=== PATIENT | female | born 1940 | race Caucasian/White ===

== ENCOUNTER → 2017-12-31 | Outpatient (CLI) | payer MEDICARE ==
[~2017-12-31] MED LIST: BENAML20/5; FISH1000 PO; HYDACE5 PO; UBID10 PO
== END | disposition home or self-care (01) ==
LOC: LAB 16:24 → LAB SHORT 16:24
DX: R35.0 Frequency of micturition (principal)
CPT/HCPCS: 87086

== ENCOUNTER → 2021-05-18 | Outpatient (CLI) | payer MEDICARE ==
[2021-05-18 13:58] LABS: Stool Occult Bld Immuno 1 Negative (NEGATIVE)
== END | disposition home or self-care (01) ==
LOC: LAB 09:37 → LAB SHORT 09:37
PROVIDERS: Family Medicine
DX: R19.7 Diarrhea, unspecified (principal)
CPT/HCPCS: G0328

== ENCOUNTER → 2021-06-09 | Outpatient (CLI) | payer MEDICARE ==
[2021-06-09 17:37] LABS: Adenovirus F 40/41 Not Detected (NOT DETECT); Astrovirus Not Detected (NOT DETECT); Campylobacter Sp Not Detected (NOT DETECT); Cryptosporidium Not Detected (NOT DETECT); Cyclospora Cayetanensis Not Detected (NOT DETECT); E. Coli O157 Not Detected (NOT DETECT); Entamoeba Histolytica Not Detected (NOT DETECT); Enteroaggregative E. coli-EAEC Not Detected (NOT DETECT); Enteropathogenic E. coli-EPEC Detected (NOT DETECT); Enterotoxigenic E. coli-ETEC Not Detected (NOT DETECT); Giardia Lamblia Not Detected (NOT DETECT); Norovirus GI/GII Not Detected (NOT DETECT); Plesiomonas Shigelloides Not Detected (NOT DETECT); Rotavirus A Not Detected (NOT DETECT); Salmonella Sp Not Detected (NOT DETECT); Sapovirus Not Detected (NOT DETECT); Shiga Toxin-prod E. coli-STEC Not Detected (NOT DETECT); Shigella/Enteroin E. coli-EIEC Not Detected (NOT DETECT); Vibrio Cholerae Not Detected (NOT DETECT); Vibrio Sp Not Detected (NOT DETECT); Yersinia Enterocolitica Not Detected (NOT DETECT)
== END | disposition home or self-care (01) ==
LOC: LAB SHORT 12:15 → LAB 12:15
PROVIDERS: Family Medicine
DX: K52.9 Noninfective gastroenteritis and colitis, unspecified (principal)
CPT/HCPCS: 0097U

== ENCOUNTER 2023-06-15 12:50 | Emergency (ER) | payer MEDICARE ==
[~2023-06-15] VITALS: Ht 157.5 cm; Wt 56.7 kg
[2023-06-15] MEDS ORDERED: Lasix20 MG PO (15:07)
[2023-06-15 15:25] VITALS: BP 160/80
== END 2023-06-15 15:25 | disposition home or self-care (01) ==
LOC: ER 12:50
DX: I11.0 Hypertensive heart disease with heart failure (principal); I50.9 Heart failure, unspecified; Z88.2 Allergy status to sulfonamides; Z79.899 Other long term (current) drug therapy
CPT/HCPCS: 71046; 80053; 83880; 84484; 85025; 93005; 93010; 96374; 99284-25; J1940

== ENCOUNTER 2023-07-24 06:46 | Inpatient (IN) | payer MEDICARE ==
[~2023-07-24] VITALS: Ht 157.5 cm; Wt 51.0 kg
[2023-07-24] VITALS (12 sets, daily range): BP systolic 86–119; BP diastolic 56–88
[~2023-07-24 06:46] MED LIST changes: +Lasix20 MG PO
[2023-07-24] MEDS ORDERED: Potassium Chlo20 ME1 PO (07:00)
[2023-07-24] MEDS ORDERED: Ventolin/Prove6.7 GM INH (07:00)
[2023-07-24] MEDS ORDERED: FUROSEMIDE20 MG PO (07:00)
[2023-07-24] MEDS ORDERED: BENAZEPRIL HCL10 MG PO (07:01)
[2023-07-24] MEDS ORDERED: AMLODIPINE BESYL5 MG PO (07:01)
[2023-07-24 07:23] LABS: BASOPHILS ABSOLUTE AUTO 0.03 K/mm3 (0.00-0.23); BASOPHILS PERCENT AUTO 0 % (0-2); EOSINOPHILS ABSOLUTE AUTO 0.03 K/mm3 (0.00-0.68); EOSINOPHILS PERCENT AUTO 0 % (0-6); Hematocrit 43.2 % (33.0-51.0); Hemoglobin 13.7 g/dL (11.5-16.0); IMMATURE GRAN ABSOLUTE AUTO 0.03 K/mm3 (0.00-0.10); IMMATURE GRAN PERCENT AUTO 0 % (0-1); LYMPHOCYTES ABSOLUTE AUTO 1.53 K/mm3 (0.84-5.20); LYMPHOCYTES PERCENT AUTO 21 % (21-46); MONOCYTES ABSOLUTE AUTO 0.99 K/mm3 (0.16-1.47); MONOCYTES PERCENT AUTO 13 % (4-13); Mean Corpuscular HGB 28.5 pg (26.0-34.0); Mean Corpuscular HGB Conc 31.7 g/dL (31.5-36.5); Mean Corpuscular Volume 90 fL (80-100); NEUTROPHILS ABSOLUTE AUTO 4.87 K/mm3 (1.96-9.15); NEUTROPHILS PERCENT AUTO 65 % (41-73); NRBC ABSOLUTE 0.02 K/mm3 (0.00-0.02); NRBC Auto 0.3 /100 WBC (0.0-0.2); Platelet Count 172 K/mm3 (150-400); RDW Coefficient Variation 15.1 % (11.7-14.2); RDW Standard Deviation 48.7 fL (35.1-46.3); White Blood Cell Count 7.48 K/mm3 (4.00-11.30)
[2023-07-24 07:59] LABS: Bilirubin, Total 2.8 mg/dL (0.1-1.0); Bun/Creatinine Ratio 30.8 (12.0-20.0); Calcium, Blood 8.3 mg/dL (8.5-10.1); Creatinine, Blood 0.81 mg/dL (0.40-1.00); Magnesium, Blood 2.4 mg/dL (1.6-2.4); Potassium, Blood 4.2 mmol/L (3.5-5.5)
[2023-07-24 10:18] LABS: Anti-Xa UFH, PHA Monitoring <0.10 IU/mL; International Normalized Ratio 1.33; Prothrombin Time Results 13.7 Sec (9.7-11.5)
--- NOTE | 2023-07-24 11:22 | NUR ---
Report from ED RN at this time. Pt coming to PCU 13 shortly.
[2023-07-24] MEDS ORDERED: TRELEGY ELLIPT1 EACH INH (11:46)
--- NOTE | 2023-07-24 14:20 | NUR ---
Assisted up to bedside commode to void. She was short of breath during the activity, but was able to tolerate it. Needed to sit on side of bed to recover afterwards. Said that she had a little bit of dizzyness but that she "was all right'.
--- NOTE | 2023-07-24 19:00 | NUR ---
Pt returned from the laboratory animal caretaker. Bedside report from Marcus Royal and Sean Menchaca. Pt is awake, alert and oriented, asking for a popscicle. Blood pressure stable; noted atrial fibrillation 136 bpm, no dyspnea, no discomfort, no pain. Flostasis devices noted in place and covered with tegederm dressing in place.
[2023-07-25] VITALS (7 sets, daily range): BP systolic 95–134; BP diastolic 58–95
--- NOTE | 2023-07-25 00:52 | NUR ---
HR UPDATE THIS RN NOTIFIED BY TELEMETRY THAT PT'S HR SUSTAINING 130'S, TOUCHING 150'S FREQUENTLY. CALL PLACED TO PHYSICIAN. ADVISED THAT PT'S BP IS 95/70, UNABLE TO ADMINISTER PRN LOPRESSOR PUSH DUE TO BP PARAMETERS. ORDERS RECEIVED FOR DIGOXIN, WILL ADMINISTER PER EMAR.
[2023-07-25 04:30] LABS: BASOPHILS ABSOLUTE AUTO 0.03 K/mm3 (0.00-0.23); BASOPHILS PERCENT AUTO 0 % (0-2); EOSINOPHILS ABSOLUTE AUTO 0.02 K/mm3 (0.00-0.68); EOSINOPHILS PERCENT AUTO 0 % (0-6); Hemoglobin 12.2 g/dL (11.5-16.0); IMMATURE GRAN ABSOLUTE AUTO 0.03 K/mm3 (0.00-0.10); IMMATURE GRAN PERCENT AUTO 0 % (0-1); LYMPHOCYTES ABSOLUTE AUTO 1.56 K/mm3 (0.84-5.20); LYMPHOCYTES PERCENT AUTO 20 % (21-46); MONOCYTES ABSOLUTE AUTO 1.02 K/mm3 (0.16-1.47); MONOCYTES PERCENT AUTO 13 % (4-13); Mean Corpuscular HGB Conc 31.3 g/dL (31.5-36.5); Mean Corpuscular Volume 90 fL (80-100); Mean Platelet Volume 10.7 fL (9.1-12.4); NEUTROPHILS ABSOLUTE AUTO 5.16 K/mm3 (1.96-9.15); NEUTROPHILS PERCENT AUTO 66 % (41-73); Platelet Count 177 K/mm3 (150-400); RDW Coefficient Variation 15.2 % (11.7-14.2); RDW Standard Deviation 49.7 fL (35.1-46.3); Red Blood Cell Count 4.35 M/mm3 (3.80-5.20); White Blood Cell Count 7.82 K/mm3 (4.00-11.30)
[2023-07-25 04:49] LABS: Bun/Creatinine Ratio 32.3 (12.0-20.0); Calcium, Blood 7.6 mg/dL (8.5-10.1); Creatinine, Blood 0.8 mg/dL (0.40-1.00); Potassium, Blood 4.2 mmol/L (3.5-5.5)
--- NOTE | 2023-07-25 04:57 | NUR ---
END OF SHIFT NOTE: PT REMAINS A&OX4, ABLE TO CALL APPROPRIATELY AND COMMUNICATE NEEDS W/ STAFF. PLEASANT AND COOPERATIVE W/ ALL CARE. AFIB ON TELE. SEE PREVIOUS NOTE REGARDING PERSISTENT TACHYCARDIA; DIGOXIN ADMINISTERED PER EMAR W/ HR DECREASE TO 90-100'S. BP SOFT, MAP >65. PT DENIES CHEST PAIN/PRESSURE. SPO2 >93% ON RA, DENIES SOB. HEPARIN GTT INFUSING PER EMAR, MANAGED BY PHARMACY. PT W/ MINIMAL OUTPUT OVERNIGHT ON BEDPAN. REPOSITIONING W/ MINIMAL ASSISTANCE. FLOSTASIS DEVICES PRESENT ON BLE IN POPLITEAL REGION. SMALL AMOUNT OF BLEEDING NOTED BILATERALLY. LLE REDRESSED W/ TEGADERM, FLOSTASIS TIGHTENED DUE TO VISIBLE LOOSENING. NO C/O PAIN T/O THE NIGHT. PEDAL PULSES FAINT BUT PALPABLE. NO HEMATOMA, REDNESS, OR SWELLING NOTED IN THE SURGICAL AREAS. NO OTHER EVENTS. CALL LIGHT WITHIN REACH, BED IN LOWEST POSITION. WILL REPORT TO ONCOMING RN.
--- NOTE | 2023-07-25 09:47 | NUR ---
AM UPDATE: ASSUMED CARE AT 0715. PT WITH BILATERAL POPLITEAL SITES, FLOWSTASIS IN PLACE. THIS RN AND FURNITURE SALES ASSOCIATE REMOVED FLOWSTASIS AT 0730. MINIMAL OOZING NOTED. GAUZE AND TEGADERM IN PLACE. SLIGHT BRUISING NOTED. PT TOLERATED WELL. 0900: PT ATTEMPTED TO GET TO BSC WITH ASSIST FROM [employer]ATION SUPERVISOR. [employer]MIN[employer] SUPERVISOR CALLED THIS RN AND REPORTED PT WITH BLEEDING FROM RIGHT POPLITEAL SITE. SITE CONTINUOUSLY BLEEDING, PRESSURE APPLIED FOR 15 MIN BY THIS RN AND FURNITURE SALES ASSOCIATE. DR. LAWSON NOTIFIED. WILL CONTINUE TO MONITOR.
--- NOTE | 2023-07-25 17:15 | NUR ---
SHIFT SUMMARY: PT ALERT AND ORIENTED X4, ABLE TO FOLLOW COMMANDS AND MAKE NEEDS KNOWN. BP STABLE. HR REMAINS AFIB 90'S-100'S. AFEBRILE. SP02 >98% ON ROOM AIR. RESPIRATIONS EVEN AND UNLABORED. PT DIG LOADED THIS SHIFT, SEE EMAR. HR IMPROVED. PT WITH BILATERAL POPLITEAL SITES. SEE PREVIOUS NOTE FOR AM ASSESMENT. SITES WITH MINIMAL OOZING NOTED, TEGADERM IN PLACE. BRUISING NOTED BILATERALLY. PEDAL PULSES STRONG. HEPARIN DC'D THIS AFTERNOON, STARTED ON PO ANTI COAGULANTS. FAMILY AT BEDSIDE MAJORITY OF THE DAY, UPDATED ON PT CARE WITH PERMISSION. PT REMAINED BEDREST FOR REMAINDER OF SHIFT. CURRENTLY SITTING IN BED EATING DINNER. BED IN LOW, CALL LIGHT IN REACH, WILL REPORT TO ONCOMING RN.
[2023-07-26 03:57] VITALS: BP 121/58
[2023-07-26 04:57] LABS: BASOPHILS ABSOLUTE AUTO 0.01 K/mm3 (0.00-0.23); BASOPHILS PERCENT AUTO 0 % (0-2); EOSINOPHILS ABSOLUTE AUTO 0.04 K/mm3 (0.00-0.68); EOSINOPHILS PERCENT AUTO 0 % (0-6); Hemoglobin 12.2 g/dL (11.5-16.0); IMMATURE GRAN ABSOLUTE AUTO 0.03 K/mm3 (0.00-0.10); IMMATURE GRAN PERCENT AUTO 0 % (0-1); LYMPHOCYTES ABSOLUTE AUTO 1.39 K/mm3 (0.84-5.20); LYMPHOCYTES PERCENT AUTO 14 % (21-46); MONOCYTES ABSOLUTE AUTO 1.08 K/mm3 (0.16-1.47); MONOCYTES PERCENT AUTO 11 % (4-13); Mean Corpuscular HGB Conc 31.3 g/dL (31.5-36.5); Mean Corpuscular Volume 90 fL (80-100); Mean Platelet Volume 10.1 fL (9.1-12.4); NEUTROPHILS ABSOLUTE AUTO 7.28 K/mm3 (1.96-9.15); NEUTROPHILS PERCENT AUTO 74 % (41-73); Platelet Count 165 K/mm3 (150-400); RDW Coefficient Variation 14.9 % (11.7-14.2); RDW Standard Deviation 48.7 fL (35.1-46.3); Red Blood Cell Count 4.35 M/mm3 (3.80-5.20); White Blood Cell Count 9.83 K/mm3 (4.00-11.30)
--- NOTE | 2023-07-26 05:34 | NUR ---
SHIFT SUMMARY. SHIFT HAS GONE WELL THUS FAR. PT IS AOX4, PLEASANT, COOPERATIVE WITH CARE. EARLY IN SHIFT, SOME VERY MILD OOZING NOTED FROM LLE OP SITE. ASSESS WITH LAI RN AND WRAPPED WITH 4X4 AND CARY WRAP TO MAINTAIN VERY MILD PRESSURE. HAVE CHECKED SEVERAL TIMES SINCE AND BILATERAL SITES REMAIN UNCHANGED. PT REPORTS MILD DISCOMFORT AT SITES. PT HAS BEEN SATTING WELL ON ROOM AIR THROUGHOUT SHIFT. CONTINENT, CALLS APPROPRIATELY FOR ASSISTANCE. PT REPORTS BEING VERY ANXIOUS ABOUT DISCHARGE AND WANTS TO BE SURE THAT SHE IS HEALTHY ENOUGH TO BE AT HOME BEFORE DC. ENCOURAGED HER THAT SHE WILL HAVE OPPURTUNITY TO SPEAK WITH DOCTOR BEFORE DISCHARGE. ENCOURAGED THAT WE CAN ATTEMPT TRANSFER TO BATHROOM EARLY THIS MORNING BUT PT REMAINS NERVOUS ABOUT THIS. PT HAS BEEN RUNNING 80s-90s ON TELE, AFIB, THROUGHOUT MOST OF SHIFT. RECENTLY BRIEFLY SUSTAINED IN THE 120s-140s BUT HAS NOW COME DOWN AND IS IN 100s-110s. PT DENIED CHEST PAIN/PRESSURE, N/V, SOB, DIZZINESS, ETC AT THIS TIME AND REPORTED FEELING FINE. BED LOCKED IN LOWEST POSITION. CONTINUING TO MONITOR.
[2023-07-26 05:42] LABS: Bun/Creatinine Ratio 29.6 (12.0-20.0); Calcium, Blood 7.5 mg/dL (8.5-10.1); Creatinine, Blood 0.68 mg/dL (0.40-1.00); Magnesium, Blood 2.3 mg/dL (1.6-2.4); Potassium, Blood 3.6 mmol/L (3.5-5.5)
[2023-07-26 07:48] VITALS: BP 122/63
[2023-07-26 10:08] LABS: Bun/Creatinine Ratio 25.7 (12.0-20.0); Calcium, Blood 7.9 mg/dL (8.5-10.1); Creatinine, Blood 0.74 mg/dL (0.40-1.00); Potassium, Blood 3.3 mmol/L (3.5-5.5)
[2023-07-26 12:17] VITALS: BP 114/67
[2023-07-26 16:30] VITALS: BP 134/69
--- NOTE | 2023-07-26 18:25 | NUR ---
PT SUMMARY: NO BLEEDING EPISODE NOTED ON THE BILAT POPLITEAL SITES, DRESSINGS REMAINED DRY AND INTACT NO HEMATOMA NOTED AROUND THE SITE. PT WAS C/O OF SORENESS THIS MORNING RELIEVED BY THE END OF THE SHIFT, PT WAS ABLE TO WORK WITH PHYSICAL THERAPY ABLE TO AMBULATE VIA WALKER IN THE CHEN, NO ISSUES. PT HAS BEEN GETTING UP AND USING THE BEDSIDE COMMODE 1PA. VITALS HRR AFIB 80-90'S TACHS UP TO 115'S WITH EXERTION, SBP 110, SATS ABOVE 95% ON RA AFEBRILE. PT DENIES CHEST PAIN HAS SOME MILD SOB WITH EXERTON. NO OTHER ISSUES REPORTED FOR THE SHIFT, CALL LIGHTS IN REACH WILL REPORT TO ONCOMING SHIFT
[2023-07-26 19:40] VITALS: BP 117/62
[2023-07-27 00:03] VITALS: BP 104/64
[2023-07-27 03:20] VITALS: BP 121/81
[2023-07-27 03:45] LABS: BASOPHILS ABSOLUTE AUTO 0.02 K/mm3 (0.00-0.23); BASOPHILS PERCENT AUTO 0 % (0-2); EOSINOPHILS ABSOLUTE AUTO 0.08 K/mm3 (0.00-0.68); EOSINOPHILS PERCENT AUTO 1 % (0-6); Hematocrit 37.3 % (33.0-51.0); Hemoglobin 11.7 g/dL (11.5-16.0); IMMATURE GRAN ABSOLUTE AUTO 0.02 K/mm3 (0.00-0.10); IMMATURE GRAN PERCENT AUTO 0 % (0-1); LYMPHOCYTES ABSOLUTE AUTO 1.49 K/mm3 (0.84-5.20); LYMPHOCYTES PERCENT AUTO 19 % (21-46); MONOCYTES ABSOLUTE AUTO 0.92 K/mm3 (0.16-1.47); MONOCYTES PERCENT AUTO 12 % (4-13); Mean Corpuscular HGB 27.9 pg (26.0-34.0); Mean Corpuscular HGB Conc 31.4 g/dL (31.5-36.5); Mean Corpuscular Volume 89 fL (80-100); Mean Platelet Volume 10.5 fL (9.1-12.4); NEUTROPHILS PERCENT AUTO 67 % (41-73); Platelet Count 168 K/mm3 (150-400); RDW Standard Deviation 47.8 fL (35.1-46.3); Red Blood Cell Count 4.19 M/mm3 (3.80-5.20); White Blood Cell Count 7.73 K/mm3 (4.00-11.30)
--- NOTE | 2023-07-27 04:58 | NUR ---
END OF SHIFT NOTE: PT REMAINS A&OX4, ABLE TO CALL APPROPRIATELY AND COMMUNICATE NEEDS W/ STAFF. PLEASANT AND COOPERATIVE W/ ALL CARE. MINIMAL SLEEP OVERNIGHT. AFIB ON TELE, RATE 90-100'S; HR TOUCHES 140-150'S AT TIMES BUT DOES NOT SUSTAIN. BP STABLE, MAP >65. PT DENIES CHEST PAIN/PRESSURE. SPO2 >93% ON RA, DENIES SOB. REPOSITIONING W/ MINIMAL TO NO ASSISTANCE. DRESSINGS PRESENT ON BILATERAL POPLITEAL SITES REMAIN INTACT. NO BLEEDING OR HEMATOMA PRESENT. NO C/O PAIN T/O THE NIGHT. PEDAL PULSES PALPABLE. PT CONTINENT, ABLE TO CALL FOR ASSISTANCE WHEN NECESSARY. NO OTHER EVENTS. CALL LIGHT WITHIN REACH, BED IN LOWEST POSITION. WILL REPORT TO ONCOMING RN.
[2023-07-27 08:14] VITALS: BP 126/91
[2023-07-27 09:23] LABS: Bun/Creatinine Ratio 26.7 (12.0-20.0); Calcium, Blood 7.7 mg/dL (8.5-10.1); Creatinine, Blood 0.6 mg/dL (0.40-1.00); Potassium, Blood 3.7 mmol/L (3.5-5.5)
[2023-07-27] MEDS ORDERED: METO50ER PO (11:43)
[2023-07-27] MEDS ORDERED: ACET325 PO (11:43)
[2023-07-27] MEDS ORDERED: XARELTO15 MG PO (11:45)
[2023-07-27] MEDS ORDERED: XARELTO20 MG PO (11:45)
[2023-07-27 12:02] VITALS: BP 116/73
== END 2023-07-27 13:31 | disposition home health service (06) | DRG 270 ==
LOC: ER 06:46 → PCU 11:01
PROVIDERS: Emergency Medicine; Internal Medicine; ADMIT Family Medicine
PROC: 04CK3ZZ Extirpation of Matter from Right Femoral Artery, Percutaneous Approach (ICD-10-PCS; principal; 2023-07-24)
PROC: 04CL3ZZ Extirpation of Matter from Left Femoral Artery, Percutaneous Approach (ICD-10-PCS; 2023-07-24)
PROC: 04CN3ZZ Extirpation of Matter from Left Popliteal Artery, Percutaneous Approach (ICD-10-PCS; 2023-07-24)
PROC: 04CM3ZZ Extirpation of Matter from Right Popliteal Artery, Percutaneous Approach (ICD-10-PCS; 2023-07-24)
PROC: B51DZZZ Fluoroscopy of Bilateral Lower Extremity Veins (ICD-10-PCS; 2023-07-24)
PROC: 06H03DZ Insertion of Intraluminal Device into Inferior Vena Cava, Percutaneous Approach (ICD-10-PCS; 2023-07-24)
DX: I82.413 Acute embolism and thrombosis of femoral vein, bilateral (principal); I26.99 Other pulmonary embolism without acute cor pulmonale; I82.433 Acute embolism and thrombosis of popliteal vein, bilateral; I82.443 Acute embolism and thrombosis of tibial vein, bilateral; I82.453 Acute embolism and thrombosis of peroneal vein, bilateral; I48.91 Unspecified atrial fibrillation; Z66 Do not resuscitate; I27.20 Pulmonary hypertension, unspecified; I08.3 Combined rheumatic disorders of mitral, aortic and tricuspid valves; I11.0 Hypertensive heart disease with heart failure; I50.9 Heart failure, unspecified; J44.9 Chronic obstructive pulmonary disease, unspecified; Z88.1 Allergy status to other antibiotic agents; Z88.2 Allergy status to sulfonamides; Z79.51 Long term (current) use of inhaled steroids; Z87.891 Personal history of nicotine dependence
CPT/HCPCS: 36415; 37187; 37191; 71045; 71260; 75822; 76937; 80048; 80053; 83735; 83880; 84443; 84484; 85025; 85520; 85610; 85730; 93005; 93010; 93306; 93970; 94640; 94664; 94760; 94762; 97112; 97116; 97162; 99152; 99153; 99285-25; A9270; C1757; C1769; C1887; C1894; J1160; J1644; J1940; J2250; J3010; J7030; Q9967

== ENCOUNTER 2023-08-19 22:33 | Inpatient (IN) | payer MEDICARE ==
[~2023-08-19] VITALS: Ht 157.5 cm; Wt 46.3 kg
[~2023-08-19 22:33] MED LIST changes: +ACET325 PO; +AMLODIPINE BESYL5 MG PO; +BENAZEPRIL HCL10 MG PO; +FUROSEMIDE20 MG PO; +METO50ER PO; +Potassium Chlo20 ME1 PO; +TRELEGY ELLIPT1 EACH INH; +Ventolin/Prove6.7 GM INH; +XARELTO15 MG PO; +XARELTO20 MG PO
[2023-08-19 23:14] LABS: BASOPHILS ABSOLUTE AUTO 0.01 K/mm3 (0.00-0.23); BASOPHILS PERCENT AUTO 0 % (0-2); EOSINOPHILS PERCENT AUTO 0 % (0-6); Hematocrit 47.6 % (33.0-51.0); Hemoglobin 13.8 g/dL (11.5-16.0); IMMATURE GRAN ABSOLUTE AUTO 0.05 K/mm3 (0.00-0.10); IMMATURE GRAN PERCENT AUTO 1 % (0-1); LYMPHOCYTES ABSOLUTE AUTO 1.06 K/mm3 (0.84-5.20); LYMPHOCYTES PERCENT AUTO 17 % (21-46); MONOCYTES ABSOLUTE AUTO 0.73 K/mm3 (0.16-1.47); MONOCYTES PERCENT AUTO 12 % (4-13); Mean Corpuscular HGB 25.7 pg (26.0-34.0); Mean Corpuscular Volume 89 fL (80-100); Mean Platelet Volume 10.2 fL (9.1-12.4); NEUTROPHILS ABSOLUTE AUTO 4.38 K/mm3 (1.96-9.15); NEUTROPHILS PERCENT AUTO 70 % (41-73); NRBC ABSOLUTE 0.17 K/mm3 (0.00-0.02); NRBC Auto 2.7 /100 WBC (0.0-0.2); Platelet Count 323 K/mm3 (150-400); RDW Coefficient Variation 16.4 % (11.7-14.2); RDW Standard Deviation 52.3 fL (35.1-46.3); Red Blood Cell Count 5.37 M/mm3 (3.80-5.20); White Blood Cell Count 6.23 K/mm3 (4.00-11.30)
[2023-08-19] MEDS ORDERED: BENAZEPRIL HCL10 MG PO (23:30)
[2023-08-19 23:38] LABS: Albumin, Blood 3.1 g/dL (3.4-5.0); Albumin/Globulin Ratio 1.1 (0.8-1.8); Bun/Creatinine Ratio 41.7 (12.0-20.0); Calcium, Blood 8.3 mg/dL (8.5-10.1); Creatinine, Blood 1.2 mg/dL (0.40-1.00); Globulin, Blood 2.8 g/dL (2.2-4.0); Potassium, Blood 5.6 mmol/L (3.5-5.5); Total Protein, Blood 5.9 g/dL (6.4-8.2)
[2023-08-20 01:15] LABS: Magnesium, Blood 2.7 mg/dL (1.6-2.4); Phosphorus, Blood 4.7 mg/dL (2.5-4.9); Thyroid Stimulating Hormone 2.46 uIU/mL (0.360-4.800)
[2023-08-20 01:25] LABS: International Normalized Ratio 3.67; Prothrombin Time Results 35.8 Sec (9.7-11.5)
[2023-08-20 02:31] LABS: Influenza A, PCR NEGATIVE (NEGATIVE); Influenza B, PCR NEGATIVE (NEGATIVE); Resp Syncytial Virus, PCR NEGATIVE (NEGATIVE); SARS-Cov-2 (COVID-19) PCR, MMC NEGATIVE (NEGATIVE)
[2023-08-20 04:30] VITALS: BP 92/79
[2023-08-20 04:44] LABS: BASOPHILS ABSOLUTE AUTO 0.02 K/mm3 (0.00-0.23); BASOPHILS PERCENT AUTO 0 % (0-2); EOSINOPHILS ABSOLUTE AUTO 0.02 K/mm3 (0.00-0.68); EOSINOPHILS PERCENT AUTO 0 % (0-6); Hematocrit 43.9 % (33.0-51.0); Hemoglobin 13.3 g/dL (11.5-16.0); IMMATURE GRAN ABSOLUTE AUTO 0.04 K/mm3 (0.00-0.10); IMMATURE GRAN PERCENT AUTO 1 % (0-1); LYMPHOCYTES ABSOLUTE AUTO 2.91 K/mm3 (0.84-5.20); LYMPHOCYTES PERCENT AUTO 35 % (21-46); MONOCYTES ABSOLUTE AUTO 0.74 K/mm3 (0.16-1.47); MONOCYTES PERCENT AUTO 9 % (4-13); Mean Corpuscular HGB 26.7 pg (26.0-34.0); Mean Corpuscular HGB Conc 30.3 g/dL (31.5-36.5); Mean Corpuscular Volume 88 fL (80-100); Mean Platelet Volume 10.4 fL (9.1-12.4); NEUTROPHILS ABSOLUTE AUTO 4.56 K/mm3 (1.96-9.15); NEUTROPHILS PERCENT AUTO 55 % (41-73); NRBC ABSOLUTE 0.19 K/mm3 (0.00-0.02); NRBC Auto 2.3 /100 WBC (0.0-0.2); Platelet Count 268 K/mm3 (150-400); RDW Coefficient Variation 16.5 % (11.7-14.2); RDW Standard Deviation 52.6 fL (35.1-46.3); Red Blood Cell Count 4.98 M/mm3 (3.80-5.20); White Blood Cell Count 8.29 K/mm3 (4.00-11.30)
[2023-08-20 04:55] LABS: Albumin, Blood 2.7 g/dL (3.4-5.0); Albumin/Globulin Ratio 1.1 (0.8-1.8); Bilirubin, Total 3.3 mg/dL (0.1-1.0); Bun/Creatinine Ratio 41.7 (12.0-20.0); Calcium, Blood 7.9 mg/dL (8.5-10.1); Creatinine, Blood 1.2 mg/dL (0.40-1.00); Globulin, Blood 2.5 g/dL (2.2-4.0); Potassium, Blood 4.6 mmol/L (3.5-5.5); Total Protein, Blood 5.2 g/dL (6.4-8.2)
== END 2023-08-20 11:14 | DRG 871 ==
LOC: ER 22:33 → ERHOLD 22:34 → ER 22:34 → ERHOLD 22:35
PROVIDERS: Emergency Medicine; ADMIT Internal Medicine
DX: A41.9 Sepsis, unspecified organism (principal); I50.23 Acute on chronic systolic (congestive) heart failure; J96.01 Acute respiratory failure with hypoxia; J18.9 Pneumonia, unspecified organism; N17.9 Acute kidney failure, unspecified; J44.0 Chronic obstructive pulmonary disease with (acute) lower respiratory infection; I27.82 Chronic pulmonary embolism; Z66 Do not resuscitate; I11.0 Hypertensive heart disease with heart failure; R65.20 Severe sepsis without septic shock; I27.20 Pulmonary hypertension, unspecified; E87.5 Hyperkalemia; I07.1 Rheumatic tricuspid insufficiency; J43.9 Emphysema, unspecified; Z79.01 Long term (current) use of anticoagulants; Z88.2 Allergy status to sulfonamides; Z88.1 Allergy status to other antibiotic agents
CPT/HCPCS: 0241U; 36415; 71046; 71260; 80053; 83605; 83735; 83880; 84100; 84145; 84443; 84484; 85025; 85379; 85610; 85730; 87040; 93005; 93010; 96365; 96375; 99285-25; J0456; J0696; J1940; J2270; J2405; J7050; Q9967